=== PATIENT | female | born 1995 | race Caucasian/White ===

== ENCOUNTER 2019-03-14 15:16 | Emergency (ER) | payer OTHER ==
[~2019-03-14] VITALS: Wt 78.6 kg
[~2019-03-14 15:16] MED LIST: ALBU8.5H8 INH; AZIT250T PO; CETI10CA PO; FERR28TA PO; GUAI118L94 PO; IBUP-1542 PO; PREN-39 PO
[2019-03-14 15:20] VITALS: BP 123/71; PULSE 78; RESP 18
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
[2019-03-14] MEDS ORDERED: ACET325T33 PO (16:30)
[2019-03-14] MEDS ORDERED: IBUPROFEN 600 MG TAB PO ONE (16:30)
[2019-03-14] MEDS ORDERED: ACETAMINOPHEN 325 MG TAB PO ONE (16:30)
[2019-03-14] MEDS ORDERED: LORA-441 PO (16:30)
[2019-03-14] MEDS ORDERED: IBUP-1561 PO (16:30)
== END 2019-03-14 16:48 | disposition home or self-care (01) ==
LOC: FTE 15:16
DX: G44.309 Post-traumatic headache, unspecified, not intractable (principal)
CPT/HCPCS: Z7502; Z7610; 99283

== ENCOUNTER 2019-03-23 18:40 | Emergency (ER) | payer OTHER ==
[~2019-03-23] VITALS: Ht 160 cm; Wt 72.0 kg
[~2019-03-23 18:40] MED LIST changes: +ACET325T33 PO; +IBUP-1561 PO; +LORA-441 PO
[2019-03-23 19:01] VITALS: Ht 160 cm; Wt 72.0 kg
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
[2019-03-23] MEDS ORDERED: ACETAMINOPHEN 325 MG TAB PO ONE (21:30)
[2019-03-23] MEDS ORDERED: DIPHTH/TET/ACEL PERTUSS (ADULT) 0.5 ML VIAL IM* ONE (21:30)
[2019-03-23] MEDS ORDERED: morphine LIQ (10 MG/5 ML) CUP PO ONE (21:30)
[2019-03-23] MEDS ORDERED: BACITRACIN 0.9 GM OINT TOP ONE (21:30)
[2019-03-23] MEDS ORDERED: LORAZEPAM 0.5 MG TAB PO ONE (21:30)
[2019-03-23] MEDS ORDERED: MORP15TA92 PO (21:31)
[2019-03-23] MEDS ORDERED: LORA-441 PO (21:31)
[2019-03-23] MEDS ORDERED: CEPH-443 PO (21:31)
[2019-03-23 22:36] VITALS: BP 123/81; PULSE 84; RESP 17
== END 2019-03-23 22:36 | disposition home or self-care (01) ==
LOC: FTE 18:40
DX: T21.25XA Burn of second degree of buttock, initial encounter (principal); X03.8XXA Other exposure to controlled fire, not in building or structure, initial encounter; Y92.89 Other specified places as the place of occurrence of the external cause
CPT/HCPCS: 16000; 90471; 90715; Z7502; Z7610